=== PATIENT | male | born 1990 | race Caucasian/White ===

== ENCOUNTER 2019-06-07 10:43 | Emergency (ER) | payer MEDICARE, OTHER ==
[2019-06-07 11:01] VITALS: TEMP 97.8
[2019-06-07] MEDS ORDERED: ORPHENADRINE 30 MG/ML 2 ML VIAL IM STA (13:14)
[2019-06-07] MEDS ORDERED: MORPHINE SULFATE 4 MG/ML SYRINGE IM STA (13:14)
--- NOTE | 2019-06-07 13:43 | XR ---
EXAMINATION TYPE: XR lumbosacral spine min 4V DATE OF EXAM: 06/07/2019 COMPARISON: NONE HISTORY: 29-year-old male with low back pain TECHNIQUE: 5 views FINDINGS: 5 lumbar type vertebral bodies. Minimal anterior wedging L2 likely reflects physiologic wedging or re mote compression injury. Vertebral body heights otherwise preserved. Straightening of the normal lumb ar lordosis with preserved alignment. IMPRESSION: Minimal anterior wedging of L2 likely reflects physiologic wedging or a remote compression injury. Co rrelate for any focal pain at this level/recent injury. No malalignment.
[2019-06-07] MEDS ORDERED: ACET/COD 300 MG/30 MG STARTER PACK 6 TAB BTL PO STA (13:50)
--- NOTE | 2019-06-07 13:53 | ED ---
Back Pain HPI - General Chief Complaint: Back Pain/Injury Stated Complaint: back pain Time Seen by Provider: 06/07/19 13:06 Source: patient, RN notes reviewed Mode of arrival: ambulatory Limitations: no limitations - History of Present Illness Initial Comments: This a 29-year-old male presents emergency Department which he ran lumbar back pain. 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 Patient states his symptoms discomfort and worsen after he sat down. Patient states he feels very stiff. Denies any bowel bladder incontinence or retention. Denies any abdominal pain including nausea vomiting diarrhea constipation. Patient states she's has for recurrent past but nothing this nature. He feels symptoms radiating into his lower extremities with no weakness no difficulty ambulate in. - Related Data Previous Rx's Medication Instructions Recorded Citalopram Hydrobromide [CeleXA] 40 mg PO DAILY #7 tab 04/21/15 [place] Carbonate 900 mg PO HS #21 capsule 04/21/15 OLANZapine 30 mg PO HS #14 tablet 04/21/15 Albuterol Inhaler [Ventolin 1 - 2 puff INHALATION Q6HR PRN #1 08/20/15 Inhaler] inhaler Azithromycin [Zithromax Z-pack] 250 mg PO DIRECTED #6 tab 08/20/15 Benzonatate [Tessalon Perles] 100 mg PO TID PRN #30 capsule 08/20/15 predniSONE 20 mg PO BID #8 tab 08/20/15 Cyclobenzaprine [Flexeril] 10 mg PO TID PRN #15 tab 06/07/19 Ibuprofen [Motrin] 600 mg PO Q8HR PRN #30 tab 06/07/19 Allergies Allergy/AdvReac Type Severity Reaction Status Date / Time No Known Allergies Allergy Verified 06/07/19 10:58 Review of Systems ROS Statement: Those systems with pertinent positive or pertinent negative responses have been documented in the HPI. ROS Other: All systems not noted in ROS Statement are negative. Past Medical History Past Medical History: No Reported History History of Any Multi-Drug Resistant Organisms: None Reported Past Surgical History: No Surgical Hx Reported Past Psychological History: Anxiety, Depression, Schizoaffective Disorder Smoking Status: Current every day smoker Past Alcohol Use History: Occasional Past Drug Use History: Marijuana General Exam Limitations: no limitations General appearance: alert, in no apparent distress Head exam: Present: atraumatic, normocephalic, normal inspection Neck exam: Present: normal inspection, full ROM. Absent: tenderness, meningismus, lymphadenopathy Respiratory exam: Present: normal lung sounds bilaterally. Absent: respiratory distress, wheezes, rales, rhonchi, stridor Cardiovascular Exam: Present: regular rate, normal rhythm, normal heart sounds. Absent: systolic murmur, diastolic murmur, rubs, gallop, clicks GI/Abdominal exam: Present: soft, normal bowel sounds. Absent: distended, tenderness, guarding, rebound, rigid Extremities exam: Present: other (Lower extremity strength equal bilaterally, neurovascular intact) Back exam: Present: normal inspection, full ROM, tenderness, paraspinal tenderness. Absent: CVA tenderness (R), CVA tenderness (L), vertebral tenderness Neurological exam: Present: alert, oriented X3, CN II-XII intact, reflexes normal. Absent: motor sensory deficit Skin exam: Present: warm, dry, intact, normal color. Absent: rash Course Vital Signs 06/07/19 10:58 Temperature 97.8 F Pulse Rate 72 Respiratory 18 Rate Blood Pressure 125/76 O2 Sat by Pulse 100 Oximetry Medical Decision Making - Medical Decision Making 29-year-old male present emergency from for low back pain. Patient symptoms consistent with a lumbar strain. Does have mild radicular pain. No red flag symptoms. X-rays were obtained which shows mild wedging though this is most likely physiological he has no injury noted for compression fracture. Disposition Clinical Impression: Strain of lumbar region Disposition: HOME SELF-CARE Condition: Stable Instructions (If sedation given, give patient instructions): Acute Low Back Pain (ED) Additional Instructions: Please return to the Emergency Department if symptoms worsen or any other concerns. Prescriptions: Cyclobenzaprine [Flexeril] 10 mg PO TID PRN #15 tab PRN Reason: Muscle Spasm Ibuprofen [Motrin] 600 mg PO Q8HR PRN #30 tab PRN Reason: Pain Is patient prescribed a controlled substance at d/c from ED?: No Referrals: None,Stated [Primary Care Provider] - 1-2 days Time of Disposition: 13:53
[2019-06-07 14:07] VITALS: BP 113/69; PULSE 59; RESP 16
== END 2019-06-07 14:06 | disposition home or self-care (01) ==
LOC: EC 10:43
DX: S39.012A Strain of muscle, fascia and tendon of lower back, initial encounter (principal); M48.56XA Collapsed vertebra, not elsewhere classified, lumbar region, initial encounter for fracture; F17.200 Nicotine dependence, unspecified, uncomplicated; X50.9XXA Other and unspecified overexertion or strenuous movements or postures, initial encounter
CPT/HCPCS: 72110; 99283; 96372 ×2; J2270; J2360

== ENCOUNTER 2019-07-27 18:06 | Emergency (ER) | payer MEDICARE, OTHER ==
[2019-07-27 18:55] VITALS: BP 119/73; PULSE 92; TEMP 98.1
--- NOTE | 2019-07-27 19:43 | XR ---
EXAMINATION TYPE: XR chest 2V DATE OF EXAM: 07/27/2019 COMPARISON: 08/20/2015 HISTORY: Cough TECHNIQUE: Frontal and lateral views of the chest are obtained. FINDINGS: There is a 3 cm patch of infiltrate in the anterior right middle lobe. The other lung fiel ds are clear. Heart and mediastinum are normal. Diaphragm is normal. Bony thorax appears normal. IMPRESSION: There is a right middle lobe pneumonia that is a change compared to old exam.
[2019-07-27] MEDS ORDERED: cefTRIAXone 1,000 MG VIAL (IM USE) IM STA (19:56)
--- NOTE | 2019-07-27 19:58 | ED ---
ENT HPI - General Chief complaint: ENT Stated complaint: Cold Time Seen by Provider: 07/27/19 18:59 Source: patient Mode of arrival: ambulatory Limitations: no limitations - History of Present Illness Initial comments: Patient is a 29-year-old male complaining of coughing, congestion for approximately 10 days. Patient states he has a history of exercise-induced asthma as a child and also is in every day smoker. Patient states he is also noticing some shortness of breath with activity. Patient had a fever yesterday of 100.2. Patient states the coughing fits are increasing. Patient has tried [id number] cough and cold medications without relief. Patient denies any nausea, vomiting, chills, abdominal pain, diarrhea. Patient has no other complaints at this time. Upon arrival to ER, vital signs are stable. - Related Data Previous Rx's Medication Instructions Recorded Citalopram Hydrobromide [CeleXA] 40 mg PO DAILY #7 tab 04/21/15 [place] Carbonate 900 mg PO HS #21 capsule 04/21/15 OLANZapine 30 mg PO HS #14 tablet 04/21/15 Albuterol Inhaler [Ventolin 1 - 2 puff INHALATION Q6HR PRN #1 08/20/15 Inhaler] inhaler Azithromycin [Zithromax Z-pack] 250 mg PO DIRECTED #6 tab 08/20/15 Benzonatate [Tessalon Perles] 100 mg PO TID PRN #30 capsule 08/20/15 predniSONE 20 mg PO BID #8 tab 08/20/15 Cyclobenzaprine [Flexeril] 10 mg PO TID PRN #15 tab 06/07/19 Ibuprofen [Motrin] 600 mg PO Q8HR PRN #30 tab 06/07/19 Azithromycin [Zithromax] 0 mg PO DIRECTED #6 tab 07/27/19 Allergies Allergy/AdvReac Type Severity Reaction Status Date / Time No Known Allergies Allergy Verified 07/27/19 18:52 Review of Systems ROS Statement: Those systems with pertinent positive or pertinent negative responses have been documented in the HPI. ROS Other: All systems not noted in ROS Statement are negative. Past Medical History Past Medical History: No Reported History History of Any Multi-Drug Resistant Organisms: None Reported Past Surgical History: No Surgical Hx Reported Past Psychological History: Anxiety, Depression, Schizoaffective Disorder Smoking Status: Current every day smoker Past Alcohol Use History: Occasional Past Drug Use History: Marijuana General Exam - General Exam Comments Initial Comments: GENERAL: Well-appearing, well-nourished and in no acute distress. Appears fatigued. HEAD: Atraumatic, normocephalic. EYES: Pupils equal round and reactive to light, extraocular movements intact, sclera anicteric, conjunctiva are normal. ENT: TMs normal, nares patent, oropharynx clear without exudates. Moist mucous membranes. NECK: Normal range of motion, supple without lymphadenopathy or JVD. LUNGS: Breath sounds clear to auscultation bilaterally and equal. No wheezes rales or rhonchi. HEART: Regular rate and rhythm without murmurs, rubs or gallops. ABDOMEN: Soft, nontender, normoactive bowel sounds. No guarding, no rebound. No masses appreciated. : Deferred EXTREMITIES: Normal range of motion, no pitting or edema. No clubbing or cyanosis. NEUROLOGICAL: Cranial nerves II through XII grossly intact. Normal speech, normal gait. PSYCH: Normal mood, normal affect. SKIN: Warm, Dry, normal turgor, no rashes or lesions noted. Limitations: no limitations Course Vital Signs 07/27/19 07/27/19 07/27/19 18:52 19:30 20:15 Temperature 98.1 F Pulse Rate 92 Respiratory 18 20 20 Rate Blood Pressure 119/73 O2 Sat by Pulse 98 Oximetry Medical Decision Making - Medical Decision Making Patient is a 29-year-old male presenting with an increase in coughing and congestion for approximately 10 days. Patient reports fever yesterday. Vital signs are stable today. Patient's exam is unremarkable. Patient does have history of exercise induced asthma as a child and also is a every day smoker. Chest x-ray reveals right middle lobe pneumonia. Patient will be given 1 g of Rocephin in the ER and will also be started on azithromycin for the next 5 days. Patient is stable for discharge at this time and he is in agreement with this plan of care. Return parameters were discussed with the patient and he verbalized understanding. Patient is stable for discharge at this time. Case discussed Dr. Pastor. Disposition Clinical Impression: Pneumonia, Cough Disposition: HOME SELF-CARE Condition: Stable Instructions (If sedation given, give patient instructions): Community Acquired Pneumonia (ED) Additional Instructions: Please return to the Emergency Department if symptoms worsen or any other concerns. Take antibiotic as prescribed. Use inhaler 1-2 times a day for cough. Prescriptions: Azithromycin [Zithromax] 0 mg PO DIRECTED #6 tab Is patient prescribed a controlled substance at d/c from ED?: No Referrals: None,Stated [Primary Care Provider] - 1-2 days
[2019-07-27 20:18] VITALS: RESP 20
== END 2019-07-27 20:15 | disposition home or self-care (01) ==
LOC: EC 18:06
DX: J18.1 Lobar pneumonia, unspecified organism (principal); F17.200 Nicotine dependence, unspecified, uncomplicated
CPT/HCPCS: 71046; 99283; 96372; J0696

== ENCOUNTER 2019-08-28 20:07 | Emergency (ER) | payer MEDICARE ==
[2019-08-28 20:13] VITALS: BP 104/65; PULSE 92; RESP 17; TEMP 97.9
--- NOTE | 2019-08-28 21:04 | XR ---
EXAMINATION TYPE: XR chest 2V DATE OF EXAM: 08/28/2019 COMPARISON: 07/27/2019 HISTORY: Cough for 2 weeks TECHNIQUE: Frontal and lateral views of the chest are obtained. FINDINGS: Heart and mediastinum are normal. Lungs are clear. Diaphragm is normal. Bony thorax appear s normal. IMPRESSION: Normal chest. There is clearing of the right middle lobe pneumonia compared to old exam.
--- NOTE | 2019-08-28 21:25 | ED ---
General Adult HPI - General Source: patient Mode of arrival: ambulatory Limitations: no limitations <Erik Hanson - Last Filed: 08/28/19 21:45> - General Source: patient, RN notes reviewed Mode of arrival: ambulatory Limitations: no limitations <Estuardo Troy - Last Filed: 08/28/19 21:54> - General Chief complaint: Upper Respiratory Infection Stated complaint: Cough Time Seen by Provider: 08/28/19 20:53 - History of Present Illness Initial comments: 29-year-old male without any significant past medical history presents for cough. Patient states he has had a nonproductive cough for 2 weeks. Patient states he has continued to smoke throughout this time. Denies fevers or chills. Patient states he had pneumonia a month ago and was treated with antibiotics. Patient states it did improve for 2 weeks and then returned. Denies asthma or COPD.Patient has no other complaints at this time including shortness of breath, chest pain, abdominal pain, nausea or vomiting, headache, or visual changes. (Estuardo Troy) - Related Data Previous Rx's Medication Instructions Recorded Citalopram Hydrobromide [CeleXA] 40 mg PO DAILY #7 tab 04/21/15 [place] Carbonate 900 mg PO HS #21 capsule 04/21/15 OLANZapine 30 mg PO HS #14 tablet 04/21/15 Albuterol Inhaler [Ventolin 1 - 2 puff INHALATION Q6HR PRN #1 08/20/15 Inhaler] inhaler Azithromycin [Zithromax Z-pack] 250 mg PO DIRECTED #6 tab 08/20/15 Benzonatate [Tessalon Perles] 100 mg PO TID PRN #30 capsule 08/20/15 predniSONE 20 mg PO BID #8 tab 08/20/15 Cyclobenzaprine [Flexeril] 10 mg PO TID PRN #15 tab 06/07/19 Ibuprofen [Motrin] 600 mg PO Q8HR PRN #30 tab 06/07/19 Azithromycin [Zithromax] 0 mg PO DIRECTED #6 tab 07/27/19 Albuterol Inhaler [Ventolin Hfa 1 - 2 puff INHALATION Q6HR PRN #1 08/28/19 Inhaler] inhaler predniSONE 50 mg PO DAILY #5 tablet 08/28/19 Allergies Allergy/AdvReac Type Severity Reaction Status Date / Time No Known Allergies Allergy Verified 08/28/19 20:13 Review of Systems ROS Other: All systems not noted in ROS Statement are negative. <Erik Hanson - Last Filed: 08/28/19 21:45> ROS Other: All systems not noted in ROS Statement are negative. <Estuardo Troy - Last Filed: 08/28/19 21:54> ROS Statement: Those systems with pertinent positive or pertinent negative responses have been documented in the HPI. Past Medical History Past Medical History: No Reported History History of Any Multi-Drug Resistant Organisms: None Reported Past Surgical History: No Surgical Hx Reported Past Psychological History: Anxiety, Depression, Schizoaffective Disorder Smoking Status: Current every day smoker Past Alcohol Use History: Occasional Past Drug Use History: Marijuana <Erik Hanson - Last Filed: 08/28/19 21:45> General Exam Limitations: no limitations <Erik Hanson - Last Filed: 08/28/19 21:45> General appearance: alert, in no apparent distress Head exam: Present: atraumatic, normocephalic, normal inspection Eye exam: Present: normal appearance, PERRL, EOMI. Absent: scleral icterus, conjunctival injection, periorbital swelling ENT exam: Present: normal exam, normal oropharynx, mucous membranes moist, TM's normal bilaterally, normal external ear exam Neck exam: Present: normal inspection, full ROM. Absent: tenderness, meningismus, lymphadenopathy Respiratory exam: Present: normal lung sounds bilaterally. Absent: respiratory distress, wheezes, rales, rhonchi, stridor Cardiovascular Exam: Present: regular rate, normal rhythm, normal heart sounds. Absent: systolic murmur, diastolic murmur, rubs, gallop, clicks GI/Abdominal exam: Present: soft, normal bowel sounds. Absent: distended, tenderness, guarding, rebound, rigid Neurological exam: Present: alert <Estuardo Troy - Last Filed: 08/28/19 21:54> Course Vital Signs 08/28/19 20:10 Temperature 97.9 F Pulse Rate 92 Respiratory 17 Rate Blood Pressure 104/65 O2 Sat by Pulse 98 Oximetry Medical Decision Making <Estuardo Troy - Last Filed: 08/28/19 21:54> - Medical Decision Making Those are stable. Patient is 98% on room air. Patient is afebrile. He is a well-appearing well-nourished male. Lungs sounds are clear although possibly slightly diminished. Chest x-ray shows a normal chest. There is clearing of the right middle lobe pneumonia compared to old exam. I did review this x-ray as well as the x-ray from one month ago with Dr. Wynn. Patient likely has a viral upper respiratory infection versus bronchitis. Patient will be treated with steroid and breathing treatment. I did offer steroid here in the emergency department the patient prefers to start this tomorrow morning. Patient be discharged home with follow-up to primary care. He will return here if he has any worsening symptoms or develops fevers.I discussed this case with attending Dr. Wynn who agrees with this assessment and treatment plan. (Estuardo Troy) Disposition <Erik Hanson - Last Filed: 08/28/19 21:45> Is patient prescribed a controlled substance at d/c from ED?: No Time of Disposition: 21:46 <Estuardo Troy - Last Filed: 08/28/19 21:54> Clinical Impression: Bronchitis Disposition: HOME SELF-CARE Condition: Good Instructions (If sedation given, give patient instructions): Upper Respiratory Infection (ED), Acute Bronchitis (ED) Additional Instructions: Please take steroid as directed. Use inhaler as needed. These were prescribed to avery trevino on . Follow-up with primary care in 1-2 days. If you have worsening symptoms or develop fevers return to the emergency department Prescriptions: predniSONE 50 mg PO DAILY #5 tablet Albuterol Inhaler [Ventolin Hfa Inhaler] 1 - 2 puff INHALATION Q6HR PRN #1 inhaler PRN Reason: Shortness Of Breath Referrals: Addi Rose MD [REFERRING] - 1-2 days
== END 2019-08-28 22:39 | disposition home or self-care (01) ==
LOC: EC 20:07
DX: J40 Bronchitis, not specified as acute or chronic (principal); J18.1 Lobar pneumonia, unspecified organism; F17.200 Nicotine dependence, unspecified, uncomplicated
CPT/HCPCS: 71046; 99284

== ENCOUNTER 2019-09-14 16:28 | Emergency (ER) | payer MEDICARE ==
[2019-09-14 16:49] VITALS: BP 121/84; TEMP 98.6
[2019-09-14] MEDS ORDERED: methylPREDNISolone SOD SUCCI 125 MG/2 ML VIAL IM ONE (17:30)
[2019-09-14] MEDS ORDERED: IPRATROPIUM-ALBUTEROL 3 ML NEB INHALATION STA (17:30)
--- NOTE | 2019-09-14 17:38 | ED ---
URI HPI - General Source: patient, RN notes reviewed, old records reviewed Mode of arrival: ambulatory Limitations: no limitations <Mariam Tidwellily - Last Filed: 09/15/19 06:24> <Shakira Montalvo - Last Filed: 09/17/19 01:07> - General Chief Complaint: Upper Respiratory Infection Stated Complaint: cough/chest pain/SOB Time Seen by Provider: 09/14/19 17:11 - History of Present Illness Initial Comments: Patient's 29-year-old male presented today for evaluation for cough congestion 1 week. He reports that when he is coughing is constantly raise and close vomiting. He denies any specific fevers or chills. His son has been sick with croup. Denies any nausea or vomiting recently. Patient states that he is a sm oker.Patient denies any recent fever, chills,chest pain, back pain, abdominal pain, nausea vomiting, numbness or tingling, dysuria or hematuria, constipation or diarrhea, headaches or visual changes, or any other current symptoms (Karla Tidwell) - Related Data Previous Rx's Medication Instructions Recorded Albuterol Inhaler [Ventolin Hfa 1 - 2 puff INHALATION Q6HR PRN #1 08/28/19 Inhaler] inhaler predniSONE 50 mg PO DAILY #5 tablet 08/28/19 Albuterol Inhaler [Ventolin Hfa 1 - 2 puff INHALATION RT-Q6H PRN 09/14/19 Inhaler] #1 inhaler predniSONE 50 mg PO DAILY #5 tablet 09/14/19 Allergies Allergy/AdvReac Type Severity Reaction Status Date / Time No Known Allergies Allergy Verified 09/14/19 16:49 Review of Systems ROS Other: All systems not noted in ROS Statement are negative. <Karla Tidwell - Last Filed: 09/15/19 06:24> ROS Other: All systems not noted in ROS Statement are negative. <Shakira Montalvo - Last Filed: 09/17/19 01:07> ROS Statement: Those systems with pertinent positive or pertinent negative responses have been documented in the HPI. Past Medical History Past Medical History: Pneumonia History of Any Multi-Drug Resistant Organisms: None Reported Past Surgical History: No Surgical Hx Reported Past Psychological History: Anxiety, Depression, Schizoaffective Disorder Smoking Status: Current every day smoker Past Alcohol Use History: Occasional Past Drug Use History: Marijuana <Lorijuancarlosjuan jKarla - Last Filed: 09/15/19 06:24> General Exam Limitations: no limitations General appearance: alert, in no apparent distress Head exam: Present: atraumatic, normocephalic, normal inspection Eye exam: Present: normal appearance, PERRL, EOMI. Absent: scleral icterus, conjunctival injection, periorbital swelling ENT exam: Present: normal exam, mucous membranes moist Neck exam: Present: normal inspection. Absent: tenderness, meningismus, lymphadenopathy Respiratory exam: Present: normal lung sounds bilaterally, wheezes (Minimal wheezing). Absent: respiratory distress, rales, rhonchi, stridor Cardiovascular Exam: Present: regular rate, normal rhythm, normal heart sounds. Absent: systolic murmur, diastolic murmur, rubs, gallop, clicks GI/Abdominal exam: Present: soft, normal bowel sounds. Absent: distended, tenderness, guarding, rebound, rigid Neurological exam: Present: alert, oriented X3, CN II-XII intact Psychiatric exam: Present: normal affect, normal mood <LorikhadijahKarla - Last Filed: 09/15/19 06:24> - General Exam Comments Initial Comments: 29-year-old male. Alert and oriented. No distress. (Karla Tidwell) Course Vital Signs 09/14/19 09/14/19 09/14/19 16:45 17:42 17:50 Temperature 98.6 F Pulse Rate 93 80 79 Respiratory 20 16 16 Rate Blood Pressure 121/84 O2 Sat by Pulse 99 Oximetry Medical Decision Making - Radiology Data Radiology results: report reviewed <Karla Tidwell - Last Filed: 09/15/19 06:24> <Shakira Montalvo - Last Filed: 09/17/19 01:07> - Medical Decision Making Patient is a 29-year-old male with cough congestion 1 week. Patient does have minimal exam exam. Given DuoNeb treatment and IM Solu-Medrol. Concern for likely bronchitis he is a smoker. Patient had normal chest x-ray. Patient's ad vised that we'll put the Patient and steroids and decongestants medication. Discussed that the cough has changed or productive sputum or he had high fevers he cannot return for reevaluation. Patient is agreeable treatment plan will comply. Return parameters were discussed. (Karla Tidwell) I was available for consultation in the emergency department. The history and physical exam were done by the midlevel provider. I was consulted for this patients care. I reviewed the case with the midlevel provider and based on their presentation of the patient, I agree with the assessment, medical decision making and plan of care as documented. Chart was dictated using [employer] dictation software. Attempts were made to correct any dictation errors however some typographical errors may persist. (Shakira Montalvo) - Radiology Data Normal chest x-ray. Negative for any acute cardiopulmonary process. (Karla Tidwell) Disposition Is patient prescribed a controlled substance at d/c from ED?: No Time of Disposition: 18:22 <Karla Tidwell - Last Filed: 09/15/19 06:24> <Shakira Montalvo - Last Filed: 09/17/19 01:07> Clinical Impression: Bronchitis Disposition: HOME SELF-CARE Condition: Good Instructions (If sedation given, give patient instructions): Upper Respiratory Infection (ED) Additional Instructions: Patient advised to use decongestions as prescribed. Take the steroids as prescribed. Return to emergency department if any alarming signs or symptoms occur. Prescriptions: predniSONE 50 mg PO DAILY #5 tablet Albuterol Inhaler [Ventolin Hfa Inhaler] 1 - 2 puff INHALATION RT-Q6H PRN #1 inhaler PRN Reason: Shortness Of Breath Referrals: None,Stated [Primary Care Provider] - 1-2 days Theodora Cevallos MD [STAFF PHYSICIAN] - 1-2 days
[2019-09-14 17:45] VITALS: RESP 16
[2019-09-14 17:50] VITALS: PULSE 79
--- NOTE | 2019-09-14 18:10 | XR ---
EXAMINATION TYPE: XR chest 2V DATE OF EXAM: 09/14/2019 COMPARISON: 08/28/2019 HISTORY: Cough and congestion TECHNIQUE: Frontal and lateral views of the chest are obtained. FINDINGS: Heart and mediastinum are normal. Lungs are clear. Diaphragm is normal. Bony thorax appear s normal. IMPRESSION: Normal chest. No change.
== END 2019-09-14 18:29 | disposition home or self-care (01) ==
LOC: EC 16:28
DX: J40 Bronchitis, not specified as acute or chronic (principal); F17.200 Nicotine dependence, unspecified, uncomplicated; Z87.01 Personal history of pneumonia (recurrent)
CPT/HCPCS: 94640; 71046; 99284; 96372; J2930

== ENCOUNTER → 2020-06-06 | Outpatient (CLI) | payer MEDICARE | END | disposition home or self-care (01) | LOC: LABWHC1 10:14 | PROVIDERS: ATTEND Family Medicine | DX: Z11.59 Encounter for screening for other viral diseases (principal) | CPT/HCPCS: U0003; C9803 ==

== ENCOUNTER → 2020-10-20 | Outpatient (CLI) | payer MEDICARE ==
--- NOTE | 2020-10-20 21:17 | CT ---
EXAMINATION TYPE: CT brain wo con DATE OF EXAM: 10/20/2020 COMPARISON: 03/13/2011 INDICATION: Right sided headache x3-4 years. DLP: 1125.7 mGycm, Automated exposure control for dose reduction was used. CONTRAST: None CT of the brain is performed utilizing 3 mm thick sections through the posterior fossa and 3 mm thick sections through the remaining calvarium. Study is performed within 24 hours of arrival to the hosp [facility]. No abnormal hyperdensity is present to suggest an acute intracranial hemorrhage. No mass lesion is evident. No acute infarcts are evident. Ventricles and sulci are appropriate for the patient age. Air and debris is within the right sphenoid sinus. Correlate for acute sphenoid sinusitis. Paranasal sinuses and mastoid air cells are otherwise clear. IMPRESSIONS: 1. Normal CT Brain 2. Clinical correlation recommended for acute right sphenoid sinusitis
== END | disposition home or self-care (01) ==
LOC: RADCTMAIN 16:36
PROVIDERS: ATTEND Family Medicine
DX: R51.9 Headache, unspecified (principal)
CPT/HCPCS: 70450

== ENCOUNTER 2021-06-16 21:13 | Emergency (ER) | payer MEDICARE ==
[2021-06-16 21:18] VITALS: BP 153/73; PULSE 100; RESP 18; TEMP 98
--- NOTE | 2021-06-16 21:45 | ED ---
General Adult HPI - General Chief complaint: Extremity Injury, Lower Stated complaint: L ankle injury Time Seen by Provider: 06/16/21 21:21 Source: patient Mode of arrival: ambulatory - History of Present Illness Initial comments: 31-year-old male presents to emergency department with a chief complaint of ankle pain. Patient reports he accidentally injured, lacerated his medial ankle several days ago. States he used a hatchet accident and it slipped. Patient reports she was able to close it with some butterfly strips. Patient reports he removed the dressing today and noticed there was some clear discharge coming from it. States it is not fully closed. He reports mild surrounding erythema around the perimeter but nothing is progressing outward. He denies any fevers or chill. Tetanus up-to-date. - Related Data Previous Rx's Medication Instructions Recorded Albuterol Inhaler (Mhu) [Ventolin 1 - 2 puff INHALATION Q6HR PRN #1 08/28/19 Hfa Inhaler (Mhu)] inhaler predniSONE 50 mg PO DAILY #5 tablet 08/28/19 Albuterol Inhaler (Mhu) [Ventolin 1 - 2 puff INHALATION RT-Q6H PRN 09/14/19 Hfa Inhaler (Mhu)] #1 inhaler predniSONE 50 mg PO DAILY #5 tablet 09/14/19 Sulfamethox-Tmp 800-160Mg [Bactrim 1 each PO Q12HR #20 tab 06/16/21 Ds] Allergies Allergy/AdvReac Type Severity Reaction Status Date / Time No Known Allergies Allergy Verified 06/16/21 21:18 Review of Systems ROS Statement: Those systems with pertinent positive or pertinent negative responses have been documented in the HPI. ROS Other: All systems not noted in ROS Statement are negative. Past Medical History Past Medical History: Pneumonia History of Any Multi-Drug Resistant Organisms: None Reported Past Surgical History: No Surgical Hx Reported Past Psychological History: Anxiety, Depression, Schizoaffective Disorder Smoking Status: Current every day smoker Past Alcohol Use History: Occasional Past Drug Use History: Marijuana General Exam Limitations: no limitations General appearance: alert, in no apparent distress Head exam: Present: atraumatic, normocephalic, normal inspection Eye exam: Present: normal appearance, PERRL, EOMI Pupils: Present: normal accommodation ENT exam: Present: normal exam, normal oropharynx, mucous membranes moist Neck exam: Present: normal inspection, full ROM. Absent: lymphadenopathy Respiratory exam: Present: normal lung sounds bilaterally. Absent: respiratory distress Cardiovascular Exam: Present: regular rate, normal heart sounds. Absent: systolic murmur Extremities exam: Present: normal inspection (Delayed healing and laceration on the medial aspect of the left ankle. No active discharge at this time.), full ROM, tenderness (Mild tenderness laceration site), normal capillary refill. Absent: pedal edema, joint swelling, calf tenderness Back exam: Present: normal inspection, full ROM Neurological exam: Present: alert, oriented X3 Psychiatric exam: Present: normal affect, normal mood Skin exam: Present: warm, dry, intact, normal color Course Vital Signs 06/16/21 21:15 Temperature 98 F Pulse Rate 100 Respiratory 18 Rate Blood Pressure 153/73 O2 Sat by Pulse 98 Oximetry Medical Decision Making - Medical Decision Making 31-year-old male presents to emergency department with chief complaint laceration. On physical examination, there is some clear discharge in the region. No significant surrounding cellulitic skin changes. I will start the patient on Bactrim. Advised to keep the area covered. Strict return parameters were thoroughly discussed the patient is an attending agreeable. PCP follow-up. Case discussed with physician. Disposition Clinical Impression: Laceration Disposition: HOME SELF-CARE Condition: Stable Instructions (If sedation given, give patient instructions): Laceration (DC) Additional Instructions: Take her medication as instructed. Follow with her primary care physician. Return to emergency department if symptoms worsen. Prescriptions: Sulfamethox-Tmp 800-160Mg [Bactrim Ds] 1 each PO Q12HR #20 tab Is patient prescribed a controlled substance at d/c from ED?: No Referrals: Tremaine Foster MD [Primary Care Provider] - 1-2 days Time of Disposition: 21:45
[2021-06-16] MEDS: SULFAMETH-TMP DS STARTER PACK 2 TAB BTL PO STA (21:55)
== END 2021-06-16 21:59 | disposition home or self-care (01) ==
LOC: EC 21:13
DX: S91.012D Laceration without foreign body, left ankle, subsequent encounter (principal); F41.9 Anxiety disorder, unspecified; F32.9 Major depressive disorder, single episode, unspecified; F25.9 Schizoaffective disorder, unspecified; F17.200 Nicotine dependence, unspecified, uncomplicated; F12.90 Cannabis use, unspecified, uncomplicated; W27.8XXD Contact with other nonpowered hand tool, subsequent encounter
CPT/HCPCS: 99283

== ENCOUNTER 2021-07-07 19:23 | Emergency (ER) | payer MEDICARE ==
[2021-07-07 19:29] VITALS: BP 157/94; PULSE 110; RESP 20; TEMP 99.2
[2021-07-07] MEDS ORDERED: KETOROLAC 15 MG/ML 1 ML VIAL IM STA (19:47)
--- NOTE | 2021-07-07 20:33 | XR ---
EXAMINATION TYPE: XR ribs bilat w pa chest xray DATE OF EXAM: 07/07/2021 COMPARISON: 09/14/2019 HISTORY: Pain. Fall. TECHNIQUE: 9 views FINDINGS: Heart and mediastinum are normal. Lungs are clear. Diaphragm is normal. There is no pleural effusion or pneumothorax. Pulmonary vascularity is normal. The ribs appear intact. IMPRESSION: Normal chest. Normal bilateral rib exam. No fracture. No change.
--- NOTE | 2021-07-07 20:49 | ED ---
General Adult HPI - General Chief complaint: Recheck/Abnormal Lab/Rx Stated complaint: back pain Time Seen by Provider: 07/07/21 19:29 Source: patient, RN notes reviewed Mode of arrival: ambulatory Limitations: no limitations - History of Present Illness Initial comments: A she is a 31-year-old male that presents to the emergency department complaining of posterior left rib pain. He notes he got blackout drunk yesterday does not remember hitting his bed but woke up was sore ribs. He was otherwise a well-appearing 31-year-old male in no apparent distress or he noted that his pain was approximately a 7 out of 10 with no relief. He was otherwise a well-appearing 31-year-old male. He denied any chest pain shortness of breath headache nausea vomiting diarrhea constipation fever fatigue chills.. - Related Data Previous Rx's Medication Instructions Recorded Albuterol Inhaler (Mhu) [Ventolin 1 - 2 puff INHALATION Q6HR PRN #1 08/28/19 Hfa Inhaler (Mhu)] inhaler predniSONE 50 mg PO DAILY #5 tablet 08/28/19 Albuterol Inhaler (Mhu) [Ventolin 1 - 2 puff INHALATION RT-Q6H PRN 09/14/19 Hfa Inhaler (Mhu)] #1 inhaler predniSONE 50 mg PO DAILY #5 tablet 09/14/19 Sulfamethox-Tmp 800-160Mg [Bactrim 1 each PO Q12HR #20 tab 06/16/21 Ds] Allergies Allergy/AdvReac Type Severity Reaction Status Date / Time No Known Allergies Allergy Verified 07/07/21 19:29 Review of Systems ROS Statement: Those systems with pertinent positive or pertinent negative responses have been documented in the HPI. ROS Other: All systems not noted in ROS Statement are negative. Past Medical History Past Medical History: Pneumonia History of Any Multi-Drug Resistant Organisms: None Reported Past Surgical History: No Surgical Hx Reported Past Psychological History: Anxiety, Depression, Schizoaffective Disorder Smoking Status: Current every day smoker Past Alcohol Use History: Occasional Past Drug Use History: Marijuana General Exam Limitations: no limitations General appearance: alert, in no apparent distress Head exam: Present: atraumatic, normocephalic, normal inspection Eye exam: Present: normal appearance, PERRL, EOMI. Absent: scleral icterus, conjunctival injection, periorbital swelling Neck exam: Present: normal inspection. Absent: tenderness, meningismus, lymphadenopathy Respiratory exam: Present: normal lung sounds bilaterally. Absent: respiratory distress, wheezes, rales, rhonchi, stridor Cardiovascular Exam: Present: regular rate, normal rhythm, normal heart sounds. Absent: systolic murmur, diastolic murmur, rubs, gallop, clicks GI/Abdominal exam: Present: soft, normal bowel sounds. Absent: distended, tenderness, guarding, rebound, rigid Extremities exam: Present: normal inspection, full ROM, normal capillary refill. Absent: tenderness, pedal edema, joint swelling, calf tenderness Back exam: Present: normal inspection, tenderness (Left-sided ribs posterior aspect.) Neurological exam: Present: alert, oriented X3 Psychiatric exam: Present: normal affect, normal mood Skin exam: Present: warm, dry, intact, normal color. Absent: rash Course Vital Signs 07/07/21 19:27 Temperature 99.2 F Pulse Rate 110 H Respiratory 20 Rate Blood Pressure 157/94 O2 Sat by Pulse 98 Oximetry Medical Decision Making - Medical Decision Making 31-year-old male complaining of left-sided rib pain on his back. X-ray the chest and bilateral ribs ordered. 15 mg of Toradol ordered. X-rays negative for any acute osseous abnormality's. Patient most likely has rib contusions. Falling. Case discussed with Dr. Valencia, patient can discharge home. - Radiology Data Radiology results: report reviewed, image reviewed X-ray ribs bilaterally with PA chest: Normal chest. Normal bilateral rib exam. No fracture. No change. Disposition Clinical Impression: Contusion of rib on left side Disposition: HOME SELF-CARE Condition: Stable Instructions (If sedation given, give patient instructions): Rib Contusion (ED) Additional Instructions: Please return to the Emergency Department if symptoms worsen or any other concerns. Take Tylenol and Motrin as needed for pain. Is patient prescribed a controlled substance at d/c from ED?: No Referrals: Tremaine Foster MD [Primary Care Provider] - 1-2 days Time of Disposition: 20:49
== END 2021-07-07 20:55 | disposition home or self-care (01) ==
LOC: EC 19:23
DX: S20.212A Contusion of left front wall of thorax, initial encounter (principal); F41.9 Anxiety disorder, unspecified; F32.9 Major depressive disorder, single episode, unspecified; F25.9 Schizoaffective disorder, unspecified; F17.200 Nicotine dependence, unspecified, uncomplicated; F12.90 Cannabis use, unspecified, uncomplicated; X58.XXXA Exposure to other specified factors, initial encounter
CPT/HCPCS: 99283; 96372; 71111; J1885

== ENCOUNTER 2022-08-05 14:21 | Emergency (ER) | payer MEDICARE ==
[2022-08-05 14:55] VITALS: BP 148/82; PULSE 81; RESP 16; TEMP 98
[2022-08-05] MEDS ORDERED: DEXAMETHASONE SOD PHOSPHATE 10 MG/ML 1 ML VIAL IM STA (15:39)
--- NOTE | 2022-08-05 15:42 | ED ---
General Adult HPI - General Chief complaint: Shortness of Breath Stated complaint: SOB,Cough,Congestion Time Seen by Provider: 08/05/22 15:32 Source: patient, RN notes reviewed, old records reviewed Mode of arrival: ambulatory Limitations: no limitations - History of Present Illness Initial comments: 32-year-old well-appearing male presents ambulatory to the emergency room with complaints of 1 week of cough, congestion and sore throat. Patient did go to urgent care and was told he has bronchitis and was given a prescription for some type of antibiotic which he did finish. Patient continues to have a dry cough. He denies any nausea vomiting diarrhea or fevers. He does smoke a pack cigarettes a day. No other medical history. -: week(s) (1) Location: neck (dry throat) Radiation: non-radiation Severity scale (1-10): 0 Associated Symptoms: cough Treatments Prior to Arrival: other (antibiotics) - Related Data Previous Rx's Medication Instructions Recorded Albuterol Inhaler [Ventolin Hfa 1 - 2 puff INHALATION Q6HR PRN #1 08/28/19 Inhaler] inhaler predniSONE 50 mg PO DAILY #5 tablet 08/28/19 Albuterol Inhaler [Ventolin Hfa 1 - 2 puff INHALATION RT-Q6H PRN 09/14/19 Inhaler] #1 inhaler predniSONE 50 mg PO DAILY #5 tablet 09/14/19 Sulfamethox-Tmp 800-160Mg [Bactrim 1 each PO Q12HR #20 tab 06/16/21 Ds] predniSONE 50 mg PO DAILY #5 tab 08/05/22 Allergies Allergy/AdvReac Type Severity Reaction Status Date / Time No Known Allergies Allergy Verified 08/05/22 14:55 Review of Systems ROS Statement: Those systems with pertinent positive or pertinent negative responses have been documented in the HPI. ROS Other: All systems not noted in ROS Statement are negative. Past Medical History Past Medical History: Pneumonia History of Any Multi-Drug Resistant Organisms: None Reported Past Surgical History: No Surgical Hx Reported Past Psychological History: Anxiety, Depression, Schizoaffective Disorder Smoking Status: Current every day smoker Past Alcohol Use History: Occasional Past Drug Use History: Marijuana General Exam Limitations: no limitations General appearance: alert, in no apparent distress Head exam: Present: atraumatic, normocephalic Eye exam: Present: EOMI. Absent: scleral icterus, periorbital swelling ENT exam: Present: normal exam, mucous membranes moist Expanded Mouth exam: Present: normal external inspection. Absent: drooling, trismus, muffled voice, tongue normal, tongue elevation Throat exam: negative: tonsillar erythema, tonsillomegaly, tonsillar exudate, R peritonsillar mass, L peritonsillar mass Neck exam: Present: normal inspection, full ROM. Absent: tenderness, meningismus, lymphadenopathy Respiratory exam: Present: normal lung sounds bilaterally. Absent: respiratory distress, wheezes, rales, rhonchi, stridor, chest wall tenderness, accessory muscle use Cardiovascular Exam: Present: regular rate GI/Abdominal exam: Present: soft Extremities exam: Present: full ROM, normal capillary refill. Absent: tenderness, pedal edema Back exam: Present: full ROM. Absent: tenderness, CVA tenderness (R), CVA tenderness (L), muscle spasm, paraspinal tenderness, vertebral tenderness, rash noted Neurological exam: Present: alert, oriented X3, normal gait Psychiatric exam: Present: normal affect, normal mood Skin exam: Present: warm, dry, normal color. Absent: cyanosis, diaphoretic, petechiae, pallor Course Vital Signs 08/05/22 14:53 Temperature 98.0 F Pulse Rate 81 Respiratory 16 Rate Blood Pressure 148/82 O2 Sat by Pulse 98 Oximetry Medical Decision Making - Medical Decision Making Chest x-ray shows no acute cardiopulmonary disease. Lung sounds are clear to auscultation. Oxygen saturation is 98% on room air. Patient is afebrile. This is likely a viral illness and patient was encouraged to increase his fluid intake. He was given a shot of Decadron for inflammation and prescription for prednisone. He was instructed to take tylenol as needed for pain or discomfort. I also discussed with him cessation of smoking as smoking will prolong his illness and increase his risk for COPD. He is agreeable to this plan of care. Case discussed with Dr. Calderón Disposition Clinical Impression: Upper respiratory infection Disposition: HOME SELF-CARE Condition: Good Instructions (If sedation given, give patient instructions): Upper Respiratory Infection (ED) Additional Instructions: Increase your fluid intake. Stop smoking as this will worsen and lengthen the duration of your illness. Tylenol as needed for any pain or discomfort. Take the steroids as prescribed, do not take ibuprofen while taking steroids. Follow-up with the primary care doctor this week. Prescriptions: predniSONE 50 mg PO DAILY #5 tab Is patient prescribed a controlled substance at d/c from ED?: No Referrals: Tremaine Foster MD [Primary Care Provider] - 1-2 days Time of Disposition: 16:28
--- NOTE | 2022-08-05 16:11 | XR ---
EXAMINATION TYPE: XR chest 2V DATE OF EXAM: 08/05/2022 COMPARISON: Chest x-ray July 07, 2021 HISTORY: Cough for one week. TECHNIQUE: Frontal and lateral views of the chest are obtained. FINDINGS: There is no suspicious new focal air space opacity, pleural effusion, or pneumothorax seen . The cardiac silhouette size is stable and within normal limits. The osseous structures are intac t. IMPRESSION: No acute pulmonary process.
== END 2022-08-05 16:48 | disposition home or self-care (01) ==
LOC: EC 14:21
DX: J06.9 Acute upper respiratory infection, unspecified (principal); F17.210 Nicotine dependence, cigarettes, uncomplicated
CPT/HCPCS: 99283; 71046; 96372; J1100

== ENCOUNTER 2023-09-06 19:28 | Emergency (ER) | payer MEDICARE ==
[2023-09-06 20:03] VITALS: RESP 18; TEMP 97.9
--- NOTE | 2023-09-06 21:02 | XR ---
EXAMINATION TYPE: XR lumbar spine 2 or 3V DATE OF EXAM: 09/06/2023 COMPARISON: 06/07/2019 HISTORY: Low back pain TECHNIQUE: 3 view lumbar spine FINDINGS: There are 5 lumbar-type vertebral bodies. Pedicles are intact. Vertebral body heights are p reserved. Some mild posterior disc space narrowing L5-S1 may be present. Remaining disc heights are p reserved. IMPRESSION: 1. Mild degenerative disc change L5-S1
[2023-09-06] MEDS ORDERED: KETOROLAC 15 MG/ML 1 ML VIAL IM STA (21:08)
[2023-09-06] MEDS ORDERED: ACETAMINOPHEN TAB 500 MG TAB PO STA (21:09)
[2023-09-06] MEDS ORDERED: LIDOCAINE 5% PATCH TOPICAL STA (21:09)
--- NOTE | 2023-09-06 21:39 | ED ---
General Adult HPI - General Chief complaint: Back Pain/Injury Stated complaint: Back pain Time Seen by Provider: 09/06/23 20:45 Source: patient, RN notes reviewed Mode of arrival: ambulatory Limitations: no limitations - History of Present Illness Initial comments: 33-year-old male presents emergency department chief complaint of right-sided low back pain. He states that this started around 6 days ago when he twisted while working outside. He reports that he took Motrin this morning which did not improve the pain. He states that the pain radiates to his right leg. He does have a history of sciatica. He denies numbness, tingling, loss of bowel or bladder function, saddle anesthesia, urinary retention, dysuria, hematuria. - Related Data Previous Rx's Medication Instructions Recorded Albuterol Inhaler [Ventolin Hfa 1 - 2 puff INHALATION Q6HR PRN #1 08/28/19 Inhaler] inhaler predniSONE 50 mg PO DAILY #5 tablet 08/28/19 Albuterol Inhaler [Ventolin Hfa 1 - 2 puff INHALATION RT-Q6H PRN 09/14/19 Inhaler] #1 inhaler predniSONE 50 mg PO DAILY #5 tablet 09/14/19 Sulfamethox-Tmp 800-160Mg [Bactrim 1 each PO Q12HR #20 tab 06/16/21 Ds] predniSONE 50 mg PO DAILY #5 tab 08/05/22 Cyclobenzaprine [Flexeril] 5 mg PO TID #15 tablet 09/06/23 Allergies Allergy/AdvReac Type Severity Reaction Status Date / Time No Known Allergies Allergy Verified 08/05/22 14:55 Review of Systems ROS Statement: Those systems with pertinent positive or pertinent negative responses have been documented in the HPI. ROS Other: All systems not noted in ROS Statement are negative. Past Medical History Past Medical History: Pneumonia History of Any Multi-Drug Resistant Organisms: None Reported Past Surgical History: No Surgical Hx Reported Past Psychological History: Anxiety, Depression, Schizoaffective Disorder Smoking Status: Current every day smoker Past Alcohol Use History: Occasional Past Drug Use History: Marijuana General Exam Limitations: no limitations General appearance: alert, in no apparent distress Head exam: Present: atraumatic, normocephalic, normal inspection Eye exam: Present: normal appearance ENT exam: Present: normal exam, mucous membranes moist Neck exam: Present: normal inspection. Absent: tenderness, meningismus, lymphadenopathy Respiratory exam: Present: normal lung sounds bilaterally. Absent: respiratory distress, wheezes, rales, rhonchi, stridor Cardiovascular Exam: Present: regular rate, normal rhythm, normal heart sounds. Absent: systolic murmur, diastolic murmur, rubs, gallop, clicks GI/Abdominal exam: Present: soft, normal bowel sounds. Absent: distended, tenderness, guarding, rebound, rigid Extremities exam: Present: normal inspection, full ROM, normal capillary refill Back exam: Present: full ROM, tenderness (Right paraspinal) Neurological exam: Present: alert, oriented X3 Psychiatric exam: Present: normal affect, normal mood Skin exam: Present: warm, dry, intact, normal color. Absent: rash Course Vital Signs 09/06/23 09/06/23 19:44 22:47 Temperature 97.9 F Pulse Rate 98 89 Respiratory 18 18 Rate Blood Pressure 115/72 118/82 O2 Sat by Pulse 96 97 Oximetry Medical Decision Making - Medical Decision Making Was pt. sent in by a medical professional or institution (Dr. PA, GEARMAN, urgent care, hospital, or residential...) When possible be specific @ -No Did you speak to anyone other than the patient for history (EMS, parent, family, police, friend...)? What history was obtained from this source @ -No Did you review nursing and triage notes (agree or disagree)? Why? @ -I reviewed and agree with nursing and triage notes Were old charts reviewed (outside hosp., previous admission, EMS record, old EKG, old radiological studies, urgent care reports/EKG's, residential records)? Report findings @ -No old charts were reviewed Differential Diagnosis (chest pain, altered mental status, abdominal pain women, abdominal pain men, vaginal bleeding, weakness, fever, dyspnea, syncope, headache, dizziness, GI bleed, back pain, seizure, CVA, palpatations, mental health, musculoskeletal)? @ -Differential Back Pain: Strain, zoster, cauda equina syndrome, epidural abscess, vertebral osteomyelitis, discitis, fracture, subluxation, disc herniation, DJD, spinal stenosis, dissection, AAA, pancreatitis, peptic ulcer disease, pyelonephritis, kidney stone, this is not meant to be an all-inclusive list. EKG interpreted by me (3pts min.). @ -None X-rays interpreted by me (1pt min.). @ -X-ray lumbar spine shows no evidence of acute fracture CT interpreted by me (1pt min.). @ -None done U/S interpreted by me (1pt. min.). @ -None done What testing was considered but not performed or refused? (CT, X-rays, U/S, labs)? Why? @ -None What meds were considered but not given or refused? Why? @ -None Did you discuss the management of the patient with other professionals (professionals i.e. , PA, GEARMAN, lab, RT, psych nurse, rn social work, direct entry midwife, teacher, administrative services officer, registered nurse hh case manager)? Give summary @ -No Was smoking cessation discussed for >3mins.? @ -No Was critical care preformed (if so, how long)? @ -No Were there social determinants of health that impacted care today? How? (Homelessness, low income, unemployed, alcoholism, drug addiction, transportation, low edu. Level, literacy, decrease access to med. care, detention, rehab)? @ -No Was there de-escalation of care discussed even if they declined (Discuss DNR or withdrawal of care, Hospice)? DNR status @ -No What co-morbidities impacted this encounter? (DM, HTN, Smoking, COPD, CAD, Cancer, CVA, ARF, Chemo, Hep., AIDS, mental health diagnosis, sleep apnea, morbid obesity)? @ -None Was patient admitted / discharged? Hospital course, mention meds given and route, prescriptions, significant lab abnormalities, going to OR and other pertinent info. @ -Discharge. Patient presented to emergency department chief complaint of right-sided back pain that radiates to his leg. He denies any loss bladder function, saddle anesthesia, urinary retention. Patient does have some slight paraspinal tenderness on the right. UA was obtained which showed no evidence of infection, negative for blood. X-ray was obtained which shows no evidence of acute fracture, mild degenerative disc disease. Patient given Toradol, Tylenol, lidocaine patch for his discomfort. Discussed possible use of muscle relaxer but patient is driving home today so these will be avoided. I did send in a prescription for Flexeril for the patient to take when he will not be driving or operating heavy machinery. Patient advised of findings and medication use for pain control. Patient is agreeable and understanding. Patient stable at time of discharge. Case discussed with Dr. Londono. Undiagnosed new problem with uncertain prognosis? @ -No Drug Therapy requiring intensive monitoring for toxicity (Heparin, Nitro, Insulin, Cardizem)? @ -No Were any procedures done? @ -No Diagnosis/symptom? @ -lumbar strain Acute, or Chronic, or Acute on Chronic? @ -acute Uncomplicated (without systemic symptoms) or Complicated (systemic symptoms)? @ -uncomplicated Side effects of treatment? @ -No Exacerbation, Progression, or Severe Exacerbation? @ -No Poses a threat to life or bodily function? How? (Chest pain, [place], [place], pneumonia, PE, COPD, DKA, ARF, appy, cholecystitis, CVA, Diverticulitis, Homicidal, Suicidal, threat to staff... and all critical care pts) @ -No - Lab Data Lab Results 09/06/23 Range/Units 21:27 Urine Color Light Yellow Urine Appearance Clear (Clear) Urine pH 6.0 (5.0-8.0) Ur Specific [place] 1.022 (1.001-1.035) Urine Protein Negative (Negative) Urine Glucose (UA) Negative (Negative) Urine Ketones Negative (Negative) Urine Blood Negative (Negative) Urine Nitrite Negative (Negative) Urine Bilirubin Negative (Negative) Urine Urobilinogen <2.0 (<2.0) mg/dL Ur Leukocyte Esterase Negative (Negative) Disposition Clinical Impression: Mechanical back pain Disposition: HOME SELF-CARE Condition: Stable Instructions (If sedation given, give patient instructions): Acute Low Back Pain (ED) Additional Instructions: Please alternate Tylenol and Motrin as needed for pain. You may take the prescribed muscle relaxers but do not drive or operate heavy machinery while taking them. Please follow up with your primary care provider. Return to the emergency department for new or worsening symptoms. Prescriptions: Cyclobenzaprine [Flexeril] 5 mg PO TID #15 tablet Is patient prescribed a controlled substance at d/c from ED?: No Referrals: Tremaine Foster MD [Primary Care Provider] - 1-2 days
[2023-09-06 22:06] LABS: Appearance,Urine Clear (Clear); Bilirubin,Urine Negative (Negative); Blood,Urine Negative (Negative); Color,Urine Light Yellow; Glucose,Urine (UA) Negative (Negative); Ketones,Urine Negative (Negative); Leukocyte Esterase,Urine Negative (Negative); Nitrite,Urine Negative (Negative); Protein,Urine Negative (Negative); Specific Gravity,Urine 1.022 (1.001-1.035); Urobilinogen,Urine <2.0 mg/dL (<2.0)
[2023-09-06 23:00] VITALS: BP 118/82; PULSE 89
== END 2023-09-06 23:09 | disposition home or self-care (01) ==
LOC: EC 19:28
DX: S39.012A Strain of muscle, fascia and tendon of lower back, initial encounter (principal); F17.200 Nicotine dependence, unspecified, uncomplicated; F12.90 Cannabis use, unspecified, uncomplicated; Z86.59 Personal history of other mental and behavioral disorders; X50.1XXA Overexertion from prolonged static or awkward postures, initial encounter
CPT/HCPCS: 81003; 72100; 99284; 96372; J1885

== ENCOUNTER 2023-09-14 00:32 | Emergency (ER) | payer MEDICARE ==
[2023-09-14 01:14] VITALS: BP 144/88; PULSE 125; RESP 18; TEMP 98.6
--- NOTE | 2023-09-14 01:33 | ED ---
Back Pain HPI - General Chief Complaint: Back Pain/Injury Stated Complaint: Lower back pain left leg numbness Time Seen by Provider: 09/14/23 00:49 Source: patient Limitations: no limitations - History of Present Illness Initial Comments: 33-year-old male presents to the ED with a chief complaint of hip pain. Patient initially seen here on 09/06/23 with complaints of right-sided back pain radiating down his hip. Patient was discharged home and advised to use ibuprofen and Flexeril as needed for pain. Patient reports that he is been taking his medications since discharge as prescribed. States that since taking these medications low back pain has improved but still has continuous hip pain. Denies any trauma or injury. Denies weakness. No incontinence. No saddle ane sthesia. Denies chest pain or shortness of breath. No other complaints. - Related Data Previous Rx's Medication Instructions Recorded Albuterol Inhaler [Ventolin Hfa 1 - 2 puff INHALATION Q6HR PRN #1 08/28/19 Inhaler] inhaler predniSONE 50 mg PO DAILY #5 tablet 08/28/19 Albuterol Inhaler [Ventolin Hfa 1 - 2 puff INHALATION RT-Q6H PRN 09/14/19 Inhaler] #1 inhaler predniSONE 50 mg PO DAILY #5 tablet 09/14/19 Sulfamethox-Tmp 800-160Mg [Bactrim 1 each PO Q12HR #20 tab 06/16/21 Ds] predniSONE 50 mg PO DAILY #5 tab 08/05/22 Cyclobenzaprine [Flexeril] 5 mg PO TID #15 tablet 09/06/23 Allergies Allergy/AdvReac Type Severity Reaction Status Date / Time No Known Allergies Allergy Verified 08/05/22 14:55 Review of Systems ROS Statement: Those systems with pertinent positive or pertinent negative responses have been documented in the HPI. ROS Other: All systems not noted in ROS Statement are negative. Past Medical History Past Medical History: Pneumonia History of Any Multi-Drug Resistant Organisms: None Reported Past Surgical History: No Surgical Hx Reported Past Psychological History: Anxiety, Depression, Schizoaffective Disorder Smoking Status: Current every day smoker Past Alcohol Use History: Occasional Past Drug Use History: Marijuana General Exam Limitations: no limitations General appearance: alert, in no apparent distress Neck exam: Present: normal inspection Respiratory exam: Present: normal lung sounds bilaterally Cardiovascular Exam: Present: regular rate, normal rhythm GI/Abdominal exam: Present: soft Extremities exam: Present: other (Medication of the right hip shows no overlying skin changes. Right hip palpation shows no crepitus, step-off, deformity. Distal pulses 2+.) Neurological exam: Present: alert, oriented X3 Course Vital Signs 09/14/23 00:44 Temperature 98.6 F Pulse Rate 125 H Respiratory 18 Rate Blood Pressure 144/88 O2 Sat by Pulse 100 Oximetry Medical Decision Making - Medical Decision Making Was pt. sent in by a medical professional or institution (, SELMA, ORE FIELDER, urgent care, hospital, or retirement...) When possible be specific @ -No Did you speak to anyone other than the patient for history (EMS, parent, family, police, friend...)? What history was obtained from this source @ -No Did you review nursing and triage notes (agree or disagree)? Why? @ -I reviewed and agree with nursing and triage notes Were old charts reviewed (outside hosp., previous admission, EMS record, old EKG, old radiological studies, urgent care reports/EKG's, retirement records)? Report findings @ -Prior visit reviewed. Shows patient was provided prescription for Flexeril. Differential Diagnosis (chest pain, altered mental status, abdominal pain women, abdominal pain men, vaginal bleeding, weakness, fever, dyspnea, syncope, headache, dizziness, GI bleed, back pain, seizure, CVA, palpatations, mental health, musculoskeletal)? @ -Differential Musculoskeletal Muscular strain, contusion, ligament sprain, fracture, arthritis, septic arthritis, bursitis, cellulitis, muscle spasm, nerve compression, DVT, arterial occlusion, herpes zoster, electrolyte abnormality, tumor.... This is not meant to be in all inclusive list EKG interpreted by me (3pts min.). @ -As above X-rays interpreted by me (1pt min.). @ -None done CT interpreted by me (1pt min.). @ -None done U/S interpreted by me (1pt. min.). @ -None done What testing was considered but not performed or refused? (CT, X-rays, U/S, labs)? Why? @ -None What meds were considered but not given or refused? Why? @ -None Did you discuss the management of the patient with other professionals (professionals i.e. , PA, ORE FIELDER, lab, RT, psych nurse, socially responsible investment adviser, bridal service sales and management, teacher, tax compliance officer, case work aide)? Give summary @ -No Was smoking cessation discussed for >3mins.? @ -No Was critical care preformed (if so, how long)? @ -No Were there social determinants of health that impacted care today? How? (Homelessness, low income, unemployed, alcoholism, drug addiction, transportation, low edu. Level, literacy, decrease access to med. care, nursing home, rehab)? @ -No Was there de-escalation of care discussed even if they declined (Discuss DNR or withdrawal of care, Hospice)? DNR status @ -No What co-morbidities impacted this encounter? (DM, HTN, Smoking, COPD, CAD, Cancer, CVA, ARF, Chemo, Hep., AIDS, mental health diagnosis, sleep apnea, morbid obesity)? @ -None Was patient admitted / discharged? Hospital course, mention meds given and route, prescriptions, significant lab abnormalities, going to OR and other pertinent info. @ -Discharge 33-year-old male presenting to the ED with complaints of atraumatic right hip pain. Exam shows no overlying skin changes. Patient has good strength and sensation of the right lower extremity. DP/PT pulses 2+. At this time, patient declined x-ray since no history of trauma. Advised supportive care and follow- up with PCP. Discharged home in stable condition. Discussed return precautions patient verbalizes agreement. Undiagnosed new problem with uncertain prognosis? @ -No Drug Therapy requiring intensive monitoring for toxicity (Heparin, Nitro, Insulin, Cardizem)? @ -No Were any procedures done? @ -No Diagnosis/symptom? @ -Right hip pain Acute, or Chronic, or Acute on Chronic? @ -Acute Uncomplicated (without systemic symptoms) or Complicated (systemic symptoms)? @ -Uncomplicated Side effects of treatment? @ -No Exacerbation, Progression, or Severe Exacerbation? @ -No Poses a threat to life or bodily function? How? (Chest pain, [place], [place], pneumonia, PE, COPD, DKA, ARF, appy, cholecystitis, CVA, Diverticulitis, Homicidal, Suicidal, threat to staff... and all critical care pts) @ -No Disposition Clinical Impression: Hip pain Disposition: HOME SELF-CARE Condition: Good Additional Instructions: Please return to the Emergency Department if symptoms worsen or any other concerns. Please follow-up with your primary care provider. Is patient prescribed a controlled substance at d/c from ED?: No Referrals: Tremaine Foster MD [Primary Care Provider] - 1-2 days Time of Disposition: 01:39
== END 2023-09-14 01:08 | disposition home or self-care (01) ==
LOC: EC 00:32
DX: M25.551 Pain in right hip (principal); F17.200 Nicotine dependence, unspecified, uncomplicated; F12.90 Cannabis use, unspecified, uncomplicated; Z86.59 Personal history of other mental and behavioral disorders
CPT/HCPCS: 99283

== ENCOUNTER 2024-06-21 14:42 | Emergency (ER) | payer OTHER ==
[2024-06-21] MEDS ORDERED: ACETAMINOPHEN TAB 325 MG TAB ONE (16:27)
[2024-06-21] MEDS ORDERED: LIDOCAINE 1% INJ 10MG/ML (20 ML MDV) ONE (16:28)
[2024-06-21] MEDS ORDERED: DIPH,PERTUS(ACELL)TETVAC-LF 0.5 ML VIAL IM ONE (16:29)
== END 2024-06-21 17:15 | disposition home or self-care (01) ==
LOC: EC 14:42
CPT/HCPCS: 12002; 90471; 90715; 99282